=== PATIENT | female | born 2000 | race Caucasian/White ===

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

== ENCOUNTER 2020-01-30 18:50 | Observation (INO) ==
[2020-01-30 19:47] LABS: Bilirubin,Urine Negative (Negative); Blood,Urine Negative (Negative); Clarity,Urine Clear (Clear); Color,Urine Yellow (Yellow); Glucose,Urine (UA) Normal (Normal); Ketones,Urine Negative (Negative); Leukocyte Esterase,Urine Negative (Negative); Nitrite,Urine Negative (Negative); Protein,Urine Negative (Neg-Trace); Specific Gravity,Urine 1.007 (1.010-1.025); Urobilinogen,Urine Normal (Normal)
[2020-01-30 20:48] LABS: Trichomonas DNA Not Detected (Not Detect)
[2020-01-30 20:49] LABS: Candida DNA Not Detected (Not Detect); Gardnerella DNA DETECTED (Not Detect)
[2020-01-30] MEDS ORDERED: metroNIDAZOLE 500 MG TABLET PO ONE (21:15)
== END 2020-01-30 21:34 | disposition home or self-care (01) ==
LOC: 1NENULAB
PROVIDERS: ADMIT Student in an Organized Health Care Education/Training Program; ATTEND Student in an Organized Health Care Education/Training Program

== ENCOUNTER 2020-04-08 05:46 | Inpatient (IN) ==
[2020-04-08] MEDS ORDERED: Famotidine 20 MG/2 ML VIAL IVP ONE (06:08)
[2020-04-08] MEDS ORDERED: Metoclopramide 10 MG/2 ML VIAL IVP ONE (06:08)
[2020-04-08] MEDS ORDERED: Ringers Solution, Lactated 1,000 ML IVC SCH ×2 (06:15→13:17)
[2020-04-08] MEDS ORDERED: *HR* Promethazine 25 MG/ML VIAL IVP PRN ×2 (06:29→08:44)
[2020-04-08] MEDS ORDERED: *HR* HYDROmorphone PF 0.5 MG/0.5 ML SYRINGE IVP PRN ×2 (06:29→08:44)
[2020-04-08 06:43] LABS: Basophils % 0.3 %; Eosinophils # 0.3 K/mcL (0.0-0.6); Hematocrit 32.9 % (35.3-44.9); Hemoglobin 10.7 g/dL (11.5-15.4); Immature Granulocytes % 0.5 % (0-4); Lymphocytes # 3.6 K/mcL (0.6-4.6); Lymphocytes % 24.5 %; Mean Corpuscular HGB Conc 32.5 g/dL (31.6-35.5); Mean Corpuscular Hemoglobin 28.9 pg (28.0-33.3); Mean Corpuscular Volume 88.9 fL (83.0-100.0); Mean Platelet Volume 10.1 fL (9.4-12.4); Monocytes # 0.7 K/mcL (0.0-1.3); Monocytes % 4.9 %; Platelet Count 310 K/mcL (140-400); Red Cell Distribution Width 14.3 % (11.5-14.5); Segmented Neutrophils % 67.8 %; White Blood Count 14.8 K/mcL (4.3-11.1)
[2020-04-08] MEDS ORDERED: *HR* FentaNYL (PF) 100 MCG/2 ML VIAL ONE (07:49)
[2020-04-08] MEDS ORDERED: EPHEDrine 50 MG/ML VIAL ONE (07:49)
[2020-04-08] MEDS ORDERED: *HR* Morphine Sulfate/PF 10 MG/10 ML AMPUL ONE (07:49)
[2020-04-08] MEDS ORDERED: *HR* Oxytocin 10 UNIT/ML VIAL IM ONE ×2 (07:51→09:57)
[2020-04-08] MEDS ORDERED: Ondansetron 4 MG/2 ML VIAL IVP ONE (08:44)
[2020-04-08] MEDS ORDERED: *HR* OxyCODONE Immed Rel 5 MG TABLET PO PRN (08:44)
[2020-04-08 09:08] LABS: Amphetamine Screen,Urine Negative ng/mL (Cutoff=1000); Barbiturate Screen,Urine Negative ng/mL (Cutoff=200); Benzodiazepines Screen,Urine Negative ng/mL (Cutoff=200); Cannabinoid Screen,Urine Negative ng/mL (Cutoff = 50); Cocaine Screen,Urine Negative ng/mL (Cutoff= 300); Opiate Screen,Urine Negative ng/mL (Cutoff=300); Phencyclidine Screen,Urine Negative ng/mL (Cutoff=25)
[2020-04-08] MEDS ORDERED: Ringers Solution, Lactated 1,000 ML ONE ×2 (09:20→09:57)
[2020-04-08] MEDS ORDERED: Acetaminophen IV 1,000 MG/100 ML BAG ONE (09:28)
[2020-04-08] MEDS ORDERED: Ondansetron 4 MG/2 ML VIAL ONE (09:28)
[2020-04-08] MEDS ORDERED: Dexamethasone 4 MG/ML VIAL ONE (09:28)
[2020-04-08] MEDS ORDERED: Oxytocin 20 units/ LR 1000 mL 20 UNIT/1,000 ML BAG IVC ONE (11:19)
[2020-04-08] MEDS ORDERED: Simethicone 80 MG TAB.CHEW PO PRN (13:17)
[2020-04-08] MEDS ORDERED: Metoclopramide 10 MG/2 ML VIAL IVP PRN (13:17)
[2020-04-08] MEDS ORDERED: Rho Immune Globulin 1,500 UNIT SYRINGE IM ONE (13:17)
[2020-04-08] MEDS ORDERED: Oxytocin 20 units/ LR 1000 mL 20 UNIT/1,000 ML BAG IVC SCH (13:17)
[2020-04-08] MEDS ORDERED: Ondansetron 4 MG/2 ML VIAL IVP PRN (13:17)
[2020-04-08] MEDS ORDERED: Sennosides 8.6 MG TABLET PO PRN (13:17)
[2020-04-08] MEDS: Prenatal Vit/FA 1 EACH TABLET PO SCH (15:12)
[2020-04-08] MEDS: Ibuprofen 600 MG TABLET PO PRN (19:55)
[2020-04-08] MEDS: *HR* OxyCODONE/APAP 5/325 TABLET PO PRN (21:02)
[2020-04-09] MEDS: *HR* OxyCODONE/APAP 5/325 TABLET PO PRN ×3 (01:40→12:05)
[2020-04-09 04:29] LABS: Basophils % 0.2 %; Eosinophils # 0.1 K/mcL (0.0-0.6); Eosinophils % 0.5 %; Immature Granulocytes % 0.5 % (0-4); Lymphocytes # 3.7 K/mcL (0.6-4.6); Mean Corpuscular HGB Conc 32.1 g/dL (31.6-35.5); Mean Corpuscular Hemoglobin 29.2 pg (28.0-33.3); Mean Corpuscular Volume 90.9 fL (83.0-100.0); Mean Platelet Volume 10.3 fL (9.4-12.4); Monocytes # 0.9 K/mcL (0.0-1.3); Monocytes % 5.7 %; Neutrophils # 11.8 K/mcL (1.6-8.9); Platelet Count 299 K/mcL (140-400); Red Blood Count 3.08 M/mcL (3.82-4.97); Red Cell Distribution Width 14.1 % (11.5-14.5); Segmented Neutrophils % 71.1 %; White Blood Count 16.6 K/mcL (4.3-11.1)
[2020-04-09] MEDS: Ibuprofen 600 MG TABLET PO PRN ×2 (04:41→15:29)
[2020-04-09 08:31] VITALS: BP 116/65
[2020-04-09] MEDS: Prenatal Vit/FA 1 EACH TABLET PO SCH (09:07)
[2020-04-09] MEDS ORDERED: Etonogestrel 68 MG IMPLANT IL ONE (13:02)
[2020-04-09] MEDS ORDERED: Lidocaine -MPF 1% 5 ML AMPUL INFILT ONE (13:02)
[2020-04-09] MEDS ORDERED: Rho Immune Globulin 1,500 UNIT SYRINGE IM ONE (15:18)
== END 2020-04-09 18:00 | disposition home or self-care (01) | DRG 540 ==
LOC: 1NENULAB 05:46 → EDSTATUS 07:45 → 1NENUOBS 13:59
PROVIDERS: ADMIT Student in an Organized Health Care Education/Training Program; ATTEND Student in an Organized Health Care Education/Training Program